=== PATIENT | female | born 1980 | race Caucasian/White ===

== ENCOUNTER 2018-01-19 11:09 | Observation (INO) | payer MEDICAID ==
[~2018-01-19] VITALS: Ht 167.6 cm; Wt 62.7 kg
[~2018-01-19 11:09] MED LIST: CEPHALEXIN500 M1 PO; DOXYCYCLINE 10100 MG PO; NORCO 325 MG-51 TAB PO
[2018-01-19] MEDS ORDERED: ADVIL200 MG PO (11:36)
[2018-01-19] MEDS ORDERED: TRINESSA 281 TAB (11:37)
[2018-01-19 12:18] LABS: BASO # 0.1 (0.0-0.2); BASO % 0.6 % (0.0-2.0); EOS % 0.3 % (0-4.0); GRAN # 11.9 (1.4-6.5); GRAN % 83.3 % (42.2-75.2); HEMOGLOBIN 12.9 g/dl (12.5-16.0); LYMPH # 1.6 (1.2-3.4); LYMPH % 11.1 % (20.0-51.0); MEAN CELL VOLUME 89 fl (80.0-100.0); MEAN CORPUSCULAR HEMOGLOBIN 31 pg (27.0-31.0); MEAN CORPUSCULAR HGB CONC 35 g/dl (33.0-37.0); MEAN PLATELET VOLUME 9.2 fl (7.4-10.4); MONO # 0.6 (0.1-0.6); MONO % 4.1 % (1.7-9.3); PLATELET COUNT 343 K/mm3 (130-400); RED BLOOD COUNT 4.14 M/mm3 (4.10-5.30); REDCELL DISTRIBUTION WIDTH-CV 12.9 % (11.5-14.5)
[2018-01-19 12:19] LABS: HEMATOCRIT 36.8 % (37.0-47.0)
[2018-01-19 12:30] LABS: ALANINE AMINOTRANSFERASE 41 U/L (9-52); ALBUMIN 3.6 gm/dL (3.5-5.0); ALKALINE PHOSPHATASE 72 U/L (50-136); ANION GAP 3 mmol/L (7-16); AST,SGOT 28 U/L (15-37); BILIRUBIN,TOTAL 0.2 mg/dL (0.0-1.0); BLOOD UREA NITROGEN 10 mg/dL (7-17); C-REACTIVE PROTEIN 1.9 mg/dL (0.0-0.9); CALCIUM 9.4 mg/dL (8.4-10.2); CARBON DIOXIDE 31 mmol/L (22-30); CHLORIDE 97 mmol/L (98-107); CREATININE, serum 0.53 mg/dL (0.52-1.25); GLUCOSE 104 mg/dL (74-106); LIPASE 58 U/L (23-300); POTASSIUM 3.9 mmol/L (3.4-5.0); SODIUM 131 mmol/L (137-145); TOTAL PROTEIN 6.7 gm/dL (6.4-8.2)
[2018-01-19 12:40] LABS: TROPONIN-I < 0.012 ng/mL (0.000-0.034)
[2018-01-19 13:38] LABS: COLLECTION METHOD CLEAN CATCH
[2018-01-19 13:45] LABS: MUCOUS Present /lpf; PH 8 (5-8); SQUAMOUS EPITHELIAL 0-2 /hpf; URINE APPEARANCE Clear; URINE BACTERIA None Seen /hpf; URINE BILIRUBIN Negative (NEGATIVE); URINE BLOOD Negative (NEGATIVE); URINE COLOR Yellow; URINE GLUCOSE Negative (NEGATIVE); URINE KETONE Negative (NEGATIVE); URINE LEUKOCYTE ESTERASE Negative (NEGATIVE); URINE NITRATE Negative (NEGATIVE); URINE PROTEIN(semi-quant) Negative (NEGATIVE); URINE RBC 0-2 /hpf; URINE UROBILINOGEN Negative (NEGATIVE)
[2018-01-19 20:22] VITALS: BP 96/58; PULSE 80; TEMP 98.2
[2018-01-19 23:00] VITALS: BP 137/94; PULSE 104; TEMP 98.6
[2018-01-20] VITALS (9 sets, daily range): BP systolic 93–121; BP diastolic 50–72; PULSE 60–102; TEMP 98.1–99.3
== END 2018-01-20 16:25 | disposition home or self-care (01) ==
LOC: COL.ER 11:09 → MEDICAL 14:26
PROVIDERS: Emergency Medicine
DX: K80.10 Calculus of gallbladder with chronic cholecystitis without obstruction (principal); F17.210 Nicotine dependence, cigarettes, uncomplicated; F41.9 Anxiety disorder, unspecified; Z86.14 Personal history of Methicillin resistant Staphylococcus aureus infection
CPT/HCPCS: J1170; J1885; J1956; J2060; J2250; J2405; J2550; J2704; J2710; J3010; J7030; Q9967